=== PATIENT | male | born 1960 | race African-American/Black ===

== ENCOUNTER 2020-05-29 23:14 | Emergency (ER) | payer MEDICAID ==
[~2020-05-29] VITALS: Ht 162.6 cm; Wt 70.3 kg
[2020-05-29 23:20] VITALS: BP 156/94
--- NOTE | 2020-05-29 23:20 | NUR ---
ED Nurse Note: pt yokasta from friend's house CO medial sternal chest pain 7/10 x 30 minutes. Per EMS, pt was given ASA 325mg and Nitro 1 spray SL; pt reported pain unrelieved. VSS no ss of distress noted. Pt aao x 4, presents with difficulty hearing and states that he has consumed unknown amount of ETOH this evening. Pt poor historian, states that he has previous cardiac hx but is unable to verbalize specific conditions. ERMD at bedside. Pt placed in bed with pt gown and placed on cardiac care nurse. Awaiting further orders. Pt states that he is unable to provide urine sample at this time. Urinal placed at bedside within reach of pt. Will continue to monitor.
--- NOTE | 2020-05-29 23:22 | NUR ---
ED Nurse Note: all blood work sent to lab
--- NOTE | 2020-05-29 23:32 | Emergency Room Report ---
History of Present Illness General Chief Complaint: Chest Pain Source: Patient Present Illness HPI This is a 60-year-old homeless male with a history of alcohol abuse. He presents with chief complaint of chest pain. Onset about an hour ago. This is a recurrent issue. He was just at [facility] couple days ago. He was admitted for the same thing. Was just discharged. Been drinking tonight. No fever chills. No nausea no vomiting. No diaphoresis. No abdominal pain. History is limited and patient is a poor historian because of his intoxication. EMS gave him aspirin and nitro. Allergies: Coded Allergies: No Known Allergies (Unverified , 05/29/20) COVID-19 Screening Contact w/high risk pt: No Experienced COVID-19 symptoms?: No COVID-19 Testing performed DRAMATIC DIRECTOR: No Patient History Past Medical History: see triage record, old chart reviewed Past Surgical History: none Pertinent Family History: none Social History: Reports: alcohol use Immunizations: other Reviewed Nursing Documentation: PMH: Agreed; PSxH: Agreed Nursing Documentation-PMH Past Medical History: No Stated History Review of Systems Eye: Denies: eye pain, blurred vision ENT: Denies: ear pain, nose congestion, throat swelling Respiratory: Denies: cough, shortness of breath Cardiovascular: Reports: chest pain; Denies: palpitations Gastrointestinal: Denies: abdominal pain, diarrhea, nausea, vomiting Musculoskeletal: Denies: back pain, joint pain Skin: Denies: rash Neurological: Denies: headache, numbness Endocrine: Denies: increased thirst, increased urine Hematologic/Lymphatic: Denies: easy bruising All Other Systems: negative except mentioned in HPI Physical Exam Vital Signs Date Time Temp Pulse Resp B/P (MAP) Pulse Ox O2 Delivery O2 Flow Rate FiO2 05/29/20 23:16 98.4 88 20 156/94 (114) 98 Room Air Vitals with high blood pressure Sp02 EP Interpretation: reviewed, normal General Appearance: well appearing, no apparent distress, alert, other - Intoxication Head: normocephalic, atraumatic Eyes: bilateral eye PERRL, bilateral eye EOMI ENT: hearing grossly normal, normal pharynx Neck: full range of motion, supple, no meningismus Respiratory: chest non-tender, lungs clear, normal breath sounds Cardiovascular #1: regular rate, rhythm, no murmur Gastrointestinal: normal bowel sounds, non tender, no mass, no organomegaly, no bruit, non-distended Musculoskeletal: back normal, normal range of motion, gait/station normal Psychiatric: mood/affect normal Medical Decision Making Diagnostic Impression: Primary Impression: Chest pain Qualified Codes: R07.9 - Chest pain, unspecified Additional Impression: Alcohol intoxication Qualified Codes: F10.920 - Alcohol use, unspecified with intoxication, uncomplicated ER Course Patient presents with atypical chest pain. No evidence of ACS, PE, dissection to name a few. This is probably alcohol related. Will discharge home in the morning. EKG Diagnostic Results Rate: normal Rhythm: NSR ST Segments: no acute changes ASA given to the pt in ED: No Rhythm Strip Diag. Results EP Interpretation: yes Rate: 70 Rhythm: NSR, no PVC's, no ectopy Chest X-Ray Diagnostic Results Chest X-Ray Diagnostic Results : Chest X-Ray Ordered: Yes # of Views/Limited/Complete: 1 View Indication: Chest Pain EP Interpretation: Yes Interpretation: no consolidation, no effusion, no pneumothorax, no acute cardiopulmonary disease Impression: No acute disease Electronically Signed by: Lukas oSrto MD Last Vital Signs Date Time Temp Pulse Resp B/P (MAP) Pulse Ox O2 Delivery O2 Flow Rate FiO2 05/29/20 23:16 98.4 88 20 156/94 (114) 98 Room Air Status: improved Disposition: HOME, SELF-CARE Condition: Stable Patient Instructions: Nonspecific Chest Pain Additional Instructions: Abstain from alcohol. Follow-up with your doctor in 7 days. Return if worse. Lukas Sorto MD May 29, 2020 23:32
[2020-05-30 00:02] LABS: ANION GAP 10 mmol/L (5-15); BLOOD UREA NITROGEN 5 mg/dL (7-18); CALCIUM 8.6 MG/DL (8.5-10.1); CARBON DIOXIDE 27 MMOL/L (21-32); CHLORIDE 103 MMOL/L (98-107); CREATININE 0.9 MG/DL (0.55-1.30); POTASSIUM 3.8 MMOL/L (3.5-5.1); SODIUM 140 MMOL/L (136-145)
[2020-05-30 00:06] LABS: ALANINE AMINOTRANSFERASE 65 U/L (12-78); ALBUMIN 3.7 G/DL (3.4-5.0); ALBUMIN/GLOBULIN RATIO 0.7 (1.0-2.7); ALKALINE PHOSPHATASE 100 U/L (46-116); ASPARTATE AMINO TRANSFERASE 70 U/L (15-37); BILIRUBIN,TOTAL 0.1 MG/DL (0.2-1.0)
[2020-05-30 00:07] LABS: BASOPHILS % (AUTO) 3.9 % (0.0-2.0); EOSINOPHILS % (AUTO) 1.8 % (0.0-3.0); HEMATOCRIT 40.2 % (42.0-52.0); HEMOGLOBIN 13.2 G/DL (14.2-18.0); LYMPHOCYTES % (AUTO) 25.2 % (20.0-45.0); MEAN CORPUSCULAR VOLUME 89 FL (80-99); MONOCYTES % (AUTO) 11.6 % (1.0-10.0); NEUTROPHILS % (AUTO) 57.5 % (45.0-75.0); PLATELET COUNT 308 K/UL (150-450); RED CELL DISTRIBUTION WIDTH 13.9 % (11.6-14.8); WHITE BLOOD COUNT 6.7 K/UL (4.8-10.8)
--- NOTE | 2020-05-30 00:18 | NUR ---
ED Nurse Note: xray at bedside
--- NOTE | 2020-05-30 00:34 | NUR ---
ED Nurse Note: Repeat troponin drawn and sent to lab
--- NOTE | 2020-05-30 00:38 | Diagnostic Imaging Report ---
EXAM: XR Chest, 1 View CLINICAL HISTORY: CP TECHNIQUE: Frontal view of the chest. COMPARISON: No relevant prior studies available. FINDINGS: Lungs: Unremarkable. Pleural space: Unremarkable. Heart: Unremarkable. Mediastinum: Unremarkable. Bones/joints: Unremarkable. IMPRESSION: Normal chest x-ray.
--- NOTE | 2020-05-30 00:45 | NUR ---
ED Nurse Note: UA sent to lab
[2020-05-30 01:02] LABS: APPEARANCE,URINE CLEAR; BILIRUBIN, URINE NEGATIVE (NEGATIVE); COLOR,URINE PALE YELLOW; GLUCOSE, URINE (UA) NEGATIVE (NEGATIVE); KETONES,URINE NEGATIVE (NEGATIVE); LEUKOCYTE ESTERASE ,URINE NEGATIVE (NEGATIVE); NITRITE,URINE NEGATIVE (NEGATIVE); PH,URINE 5 (4.5-8.0); PROTEIN,URINE NEGATIVE (NEGATIVE); UROBILINOGEN,URINE NORMAL MG/DL (0.0-1.0)
--- NOTE | 2020-05-30 01:13 | NUR ---
ED Nurse Note: pt resting in bed, vss no ss of distress noted. pt given food and drinks per ERMD. pt tolerated well. will continue to monitor.
[2020-05-30 01:14] VITALS: BP 110/57
[2020-05-30] MEDS ORDERED: Mylanta II UD 30ml ORAL ONE (02:30)
[2020-05-30] MEDS ORDERED: Acetaminophen 500mg (ES) tab ORAL ONE (02:30)
--- NOTE | 2020-05-30 02:30 | NUR ---
ED Nurse Note: Pt stated increase in pain 06/14. ERMD notified. All medications administered, pt tolerated well no ss of distress noted. will continue to monitor.
--- NOTE | 2020-05-30 03:10 | NUR ---
ED Nurse Note: Pt sleeping in bed, VSS no ss of distress noted. Will continue to monitor.
[2020-05-30 03:26] VITALS: BP 112/65
[2020-05-30 05:10] VITALS: BP 107/52
[2020-05-30 05:54] VITALS: BP 103/52
--- NOTE | 2020-05-30 05:54 | NUR ---
ER DISCHARGE NOTE: Patient is cleared to be discharged home per ERMD, pt is aox4, 98% on room air, with stable vital signs. pt was given dc instructions, pt was able to verbalize understanding, pt id band and iv site removed without complications. pt is able to ambulate with steady gait. pt took all belongings. pt aao x 4, ambulates with steady gait with use of cane. Pt verbalized understanding of dc instructions. Pt states pain is 0/10.
== END 2020-05-30 05:54 | disposition home or self-care (01) ==
LOC: EDBD 23:14 → EMR 23:30
DX: R07.9 Chest pain, unspecified (principal); F10.129 Alcohol abuse with intoxication, unspecified
CPT/HCPCS: 36415; 71045; 80053; 80307; 81003; 84484; 85025; 93005; 96374; G0480; S0028; Z7502; 99284

== ENCOUNTER 2020-08-22 21:09 | Emergency (ER) | payer MEDICAID ==
[~2020-08-22] VITALS: Ht 162.6 cm; Wt 72.6 kg
[2020-08-22] MEDS ORDERED: Nitroglycerin 2% oint pkt TOPIC ONE (21:30)
--- NOTE | 2020-08-22 21:41 | NUR ---
ED Nurse Note: Patient brought in by ambulance from [facility] for intermittent chest pain that started today. Patient aao x 2 and ambulatory with assistance. Per EMS, chest pain started at 1450 today, midsternal nonradiating, 05/14. Patient changed into gown and placed on centrifugal operator. No acute distress noted during assessment. Left hand 22g IV established and blood drawn sent to lab.
[2020-08-22 21:49] LABS: BASOPHILS % (AUTO) 1.3 % (0.0-2.0); EOSINOPHILS % (AUTO) 2.6 % (0.0-3.0); LYMPHOCYTES % (AUTO) 38.2 % (20.0-45.0); MEAN CORPUSCULAR VOLUME 85 FL (80-99); MONOCYTES % (AUTO) 11.8 % (1.0-10.0); NEUTROPHILS % (AUTO) 46.1 % (45.0-75.0); PLATELET COUNT 228 K/UL (150-450); RED BLOOD COUNT 4.33 M/UL (4.70-6.10); RED CELL DISTRIBUTION WIDTH 12.9 % (11.6-14.8)
[2020-08-22 21:50] VITALS: BP 140/80
--- NOTE | 2020-08-22 21:50 | NUR ---
ED Nurse Note: Provided urinal to pt for urine sample.
--- NOTE | 2020-08-22 21:54 | Emergency Room Report ---
History of Present Illness General Chief Complaint: Chest Pain Source: Patient, Medical Record Present Illness HPI The patient comes for evaluation of chest pain. He is coming from a [facility]. Patient is a poor historian. He says that yes he has been having chest pain but will not rate all severe it is. The nursing staff says it was substernal. The patient does not locate the pain to that spot. He does state that he has had some shortness of breath. The patient does not seem to understand most questions asked of him. In trying to ascertain whether there is psychiatric component the patient is taking risperidone. No psychiatric history is available from the facility. The patient was evaluated here in May for chest pain. At that time his history giving was alleged due to alcohol intoxication. Apparently he had been hospitalized at [facility] before that. In May he was discharged to the [facility]. Risk factors for cardiac disease: Hypertension, alleged prior cardiac disease and smoking The patient was recently tested for COVID-19 on August 16. When he answers questions regarding review of systems the answers are variable. Allergies: Coded Allergies: No Known Allergies (Unverified , 05/29/20) COVID-19 Screening Contact w/high risk pt: No Experienced COVID-19 symptoms?: No COVID-19 Testing performed CATALOGUE AND SPECIAL PRODUCTS MANAGER: No Patient History Limited by: medical condition Past Medical History: see triage record, old chart reviewed Social History: Reports: smoking, alcohol use Social History Narrative [facility] Reviewed Nursing Documentation: PMH: Agreed; PSxH: Agreed Nursing Documentation-PMH Hx Hypertension: Yes Hx Asthma: Yes History Of Psychiatric Problem: Yes - schizophrenia Review of Systems All Other Systems: limited Physical Exam Vital Signs Date Time Temp Pulse Resp B/P (MAP) Pulse Ox O2 Delivery O2 Flow Rate FiO2 08/22/20 21:10 98.4 67 18 130/83 (99) 98 Room Air Sp02 EP Interpretation: reviewed, normal General Appearance: well appearing, no apparent distress, GCS 15 Head: normocephalic Eyes: bilateral eye PERRL, bilateral eye EOMI, bilateral eye Scleral Injection ENT: moist mucus membranes Neck: supple Respiratory: lungs clear, normal breath sounds, other - chest wall tenderness Cardiovascular #1: regular rate, rhythm, no edema Cardiovascular #2: 2+ radial (R) Gastrointestinal: normal inspection, normal bowel sounds, non tender, no mass, non-distended, overweight Musculoskeletal: back normal, normal range of motion, no calf tenderness, gait/station normal Neurologic: alert, motor strength/tone normal, oriented - X2, sensory intact, cerebellar normal, speech normal Psychiatric: other - slight inappropriate laughing Skin: no rash, warm/dry Medical Decision Making Diagnostic Impression: Primary Impression: Chest pain Qualified Codes: R07.89 - Other chest pain Additional Impressions: Minimally elevated D-dimer COVID-19 virus antibody negative Cognitive defect ER Course Patient with history of cardiac disease hypertension and smoking presents with chest pain. The patient is a poor historian which makes things more difficult. Differential includes acute myocardial infarction, acute coronary syndrome, chest wall pain, GERD, pulmonary embolus amongst others. Patient is evaluated EKG, chest x-ray and labs. Patient is placed on a monitoring specialist. Patient will be tested for COVID-19. Patient treated with aspirin and nitroglycerin paste. EKG sinus rhythm with J-point elevation. Chest x-ray poor inspiration with atelectasis no actual infiltrates. Labs remarkable for normal white count and troponin. D-dimer is mildly elevated. Elevated C-reactive protein Covid negative. Based on the patient's clinical presentation and lack of tachycardia acute pulmonary embolus is unlikely. However the patient is given a dose of Lovenox here. This will treat both acute coronary syndrome and possible pulmonary embolus. Discussed with Dr. Santos who accepts the patient in transfer. Laboratory Tests Test 08/22/20 21:21 08/22/20 21:49 08/22/20 21:53 White Blood Count 7.0 K/UL (4.8-10.8) Red Blood Count 4.33 M/UL (4.70-6.10) L Hemoglobin 12.0 G/DL (14.2-18.0) L Hematocrit 37.0 % (42.0-52.0) L Mean Corpuscular Volume 85 FL (80-99) Mean Corpuscular Hemoglobin 27.6 PG (27.0-31.0) Mean Corpuscular Hemoglobin Concent 32.3 G/DL (32.0-36.0) Red Cell Distribution Width 12.9 % (11.6-14.8) Platelet Count 228 K/UL (150-450) Mean Platelet Volume 10.8 FL (6.5-10.1) H Neutrophils (%) (Auto) 46.1 % (45.0-75.0) Lymphocytes (%) (Auto) 38.2 % (20.0-45.0) Monocytes (%) (Auto) 11.8 % (1.0-10.0) H Eosinophils (%) (Auto) 2.6 % (0.0-3.0) Basophils (%) (Auto) 1.3 % (0.0-2.0) Prothrombin Time 13.0 SEC (9.30-11.50) H Prothrombin Time INR 1.2 (0.9-1.1) H Activated Partial Thromboplast Time 31 SEC (23-33) D-Dimer 0.88 mg/L FEU (0.00-0.49) H Sodium Level 140 MMOL/L (136-145) Potassium Level 4.3 MMOL/L (3.5-5.1) Chloride Level 105 MMOL/L (98-107) Carbon Dioxide Level 29 MMOL/L (21-32) Anion Gap 6 mmol/L (5-15) Blood Urea Nitrogen 8 mg/dL (7-18) Creatinine 1.1 MG/DL (0.55-1.30) Estimated Glomerular Filtration Rate > 60 mL/min (>60) Glucose Level 122 MG/DL (74-106) H Calcium Level 9.0 MG/DL (8.5-10.1) Magnesium Level 1.9 MG/DL (1.8-2.4) Ferritin 25 NG/ML (8-388) Total Bilirubin 0.2 MG/DL (0.2-1.0) Aspartate Amino Transferase (AST) 29 U/L (15-37) Alanine Aminotransferase (ALT) 21 U/L (12-78) Alkaline Phosphatase 69 U/L (46-116) Lactate Dehydrogenase 171 U/L (81-234) Total Creatine Kinase 324 U/L (26-308) H Troponin I 0.000 ng/mL (0.000-0.056) C-Reactive Protein, Quantitative 1.7 mg/dL (0.00-0.90) H Pro-B-Type Natriuretic Peptide 130 pg/mL (0-125) H Total Protein 6.8 G/DL (6.4-8.2) Albumin 3.2 G/DL (3.4-5.0) L Globulin 3.6 g/dL Albumin/Globulin Ratio 0.9 (1.0-2.7) L Lipase 232 U/L (73-393) Serum Alcohol < 3 mg/dL Lactic Acid Level 0.90 mmol/L (0.4-2.0) Urine Color Pale yellow Urine Appearance Clear Urine pH 6 (4.5-8.0) Urine Specific [place] 1.010 (1.005-1.035) Urine Protein Negative (NEGATIVE) Urine Glucose (UA) Negative (NEGATIVE) Urine Ketones Negative (NEGATIVE) Urine Blood Negative (NEGATIVE) Urine Nitrite Negative (NEGATIVE) Urine Bilirubin Negative (NEGATIVE) Urine Urobilinogen Normal MG/DL (0.0-1.0) Urine Leukocyte Esterase Negative (NEGATIVE) Urine Opiates Screen Negative (NEGATIVE) Urine Barbiturates Screen Negative (NEGATIVE) Phencyclidine (PCP) Screen Negative (NEGATIVE) Urine Amphetamines Screen Negative (NEGATIVE) Urine Benzodiazepines Screen Negative (NEGATIVE) Urine Cocaine Screen Negative (NEGATIVE) Urine Marijuana (THC) Screen Negative (NEGATIVE) Microbiology Date/Time Source Procedure Growth Status 08/22/20 21:30 Nasopharynx SARS-CoV-2 RdRp Gene Assay - Final Complete EKG Diagnostic Results Troponin ordered: Yes Rate: normal Rhythm: NSR ST Segments: no acute changes - J point elevation ASA given to the pt in ED: Yes Rhythm Strip Diag. Results EP Interpretation: yes Rhythm: NSR, no PVC's, no ectopy Chest X-Ray Diagnostic Results Chest X-Ray Diagnostic Results : Chest X-Ray Ordered: Yes # of Views/Limited/Complete: 1 View Indication: Chest Pain EP Interpretation: Yes Interpretation: no effusion, no pneumothorax, other - Poor inspiration with possible atelectasis Impression: Other Electronically Signed by: Electronically signed by Fredrick Wray MD Last Vital Signs Date Time Temp Pulse Resp B/P (MAP) Pulse Ox O2 Delivery O2 Flow Rate FiO2 08/22/20 21:50 98.4 75 18 140/80 98 Room Air Status: improved Disposition: SHORT-TERM HOSP - [facility] Condition: Serious Referrals: Reno De Luna DO (PCP) Fredrick Wray MD Aug 22, 2020 21:54
--- NOTE | 2020-08-22 21:58 | NUR ---
ED Nurse Note: Xray at bedside
[2020-08-22 22:00] LABS: ANION GAP 6 mmol/L (5-15); BLOOD UREA NITROGEN 8 mg/dL (7-18); CARBON DIOXIDE 29 MMOL/L (21-32); CHLORIDE 105 MMOL/L (98-107); CREATININE 1.1 MG/DL (0.55-1.30); POTASSIUM 4.3 MMOL/L (3.5-5.1); SODIUM 140 MMOL/L (136-145)
[2020-08-22 22:01] LABS: INR 1.2 (0.9-1.1)
[2020-08-22 22:02] LABS: APPEARANCE,URINE CLEAR; BILIRUBIN, URINE NEGATIVE (NEGATIVE); COLOR,URINE PALE YELLOW; GLUCOSE, URINE (UA) NEGATIVE (NEGATIVE); KETONES,URINE NEGATIVE (NEGATIVE); LEUKOCYTE ESTERASE ,URINE NEGATIVE (NEGATIVE); NITRITE,URINE NEGATIVE (NEGATIVE); PH,URINE 6 (4.5-8.0); PROTEIN,URINE NEGATIVE (NEGATIVE); UROBILINOGEN,URINE NORMAL MG/DL (0.0-1.0)
--- NOTE | 2020-08-22 22:09 | Diagnostic Imaging Report ---
EXAM: XR Chest, 1 View CLINICAL HISTORY: CP TECHNIQUE: Frontal view of the chest. COMPARISON: 05/30/2020 FINDINGS: Lungs: Low lung volumes with bronchovascular crowding. No consolidation, pleural effusion, or pneumothorax. Pleural space: See above. Heart: Prominent cardiomediastinal silhouette likely due to at least in part to low lung volumes and technique. If there is further concern, recommend echocardiogram. Mediastinum: See above. Bones/joints: No acute abnormality IMPRESSION: 1. Low lung volumes with bronchovascular crowding. 2. Prominent cardiomediastinal silhouette likely due to at least in part to low lung volumes and technique. If there is further concern, recommend echocardiogram. 3. Otherwise no acute cardiopulmonary disease. 4. If there is continued concern, recommend frontal and lateral chest radiographs or CT.
[2020-08-22 22:15] LABS: ALANINE AMINOTRANSFERASE 21 U/L (12-78); ALBUMIN 3.2 G/DL (3.4-5.0); ALBUMIN/GLOBULIN RATIO 0.9 (1.0-2.7); ALKALINE PHOSPHATASE 69 U/L (46-116); ASPARTATE AMINO TRANSFERASE 29 U/L (15-37); BILIRUBIN,TOTAL 0.2 MG/DL (0.2-1.0); CREATINE KINASE 324 U/L (26-308); FERRITIN 25 NG/ML (8-388); LACTATE DEHYDROGENASE 171 U/L (81-234)
[2020-08-22] MEDS ORDERED: ZOFRAN4 M3 ORAL (22:29)
[2020-08-22] MEDS ORDERED: FAMOTIDINE20 MG ORAL (22:29)
[2020-08-22] MEDS ORDERED: RISPERDAL2 MG ORAL (22:29)
[2020-08-22] MEDS ORDERED: ACETAMINOPHEN325 M1 ORAL (22:29)
[2020-08-22] MEDS ORDERED: MULTIVITAMINS1 EAC8 ORAL (22:29)
[2020-08-22] MEDS ORDERED: FOLIC ACID1 MG ORAL (22:29)
[2020-08-22] MEDS ORDERED: VITAMIN B-1100 MG ORAL (22:29)
[2020-08-22] MEDS ORDERED: BENADRYL25 MG ORAL (22:29)
[2020-08-22] MEDS ORDERED: METOPROLOL TART50 M1 ORAL (22:29)
[2020-08-22] MEDS ORDERED: COLACE100 MG ORAL (22:29)
[2020-08-22] MEDS ORDERED: CATAPRES0.1 MG ORAL (22:29)
[2020-08-22] MEDS ORDERED: Enoxaparin 80mg Inj SUBQ STA (22:47)
--- NOTE | 2020-08-22 23:26 | NUR ---
ED Nurse Note: Report given to JENNIFER Méndez at [facility].
[2020-08-22 23:45] VITALS: BP 119/63
--- NOTE | 2020-08-22 23:45 | NUR ---
ER DISCHARGE NOTE: Patient cleared for transfer by [facility] to [facility]. Report given to JENNIFER Méndez. Patient transported via [facility]. All patient belongings taken by ambulance personnel. Patient alert and awake, stable during departure accompanied by ambulance personnel.
== END 2020-08-22 23:45 | disposition short-term general hospital (02) ==
LOC: EDBD 21:09 → EDUNIT# 21:09 → EMR 21:23
DX: R07.9 Chest pain, unspecified (principal); R79.89 Other specified abnormal findings of blood chemistry; R06.02 Shortness of breath; F17.200 Nicotine dependence, unspecified, uncomplicated; F20.9 Schizophrenia, unspecified; I11.9 Hypertensive heart disease without heart failure
CPT/HCPCS: 36415; 71045; 80053; 80307; 81003; 82550; 82728; 83605; 83615; 83690; 83735; 83880; 84484; 85025; 85379; 85610; 85730; 86140; 93005; 96372; G0480; J1650; U0002; Z7502; 99285